=== PATIENT | female | born 1970 | race Caucasian/White ===

== ENCOUNTER 2016-09-25 20:19 | Emergency (ER) | payer SELFPAY ==
[~2016-09-25] VITALS: Ht 167.6 cm; Wt 59.0 kg
[2016-09-25 20:22] VITALS: BP 124/86
--- NOTE | 2016-09-25 23:33 | NUR ---
CALLED PT NAME [id number]. NO RESPONSE IN WAITING ROOM.
--- NOTE | 2016-09-25 23:34 | NUR ---
PER ADMITTING. PT IS NOT IN WAITING ROOM AND LEFT.
== END 2016-09-25 23:35 | disposition left against medical advice (07) ==
LOC: ER 20:22
DX: Z53.21 Procedure and treatment not carried out due to patient leaving prior to being seen by health care provider (principal)
CPT/HCPCS: A4606; Z7610

== ENCOUNTER 2017-06-22 14:12 | Emergency (ER) | payer SELFPAY ==
[~2017-06-22] VITALS: Ht 167.6 cm; Wt 53.1 kg
[2017-06-22 14:26] VITALS: BP 122/54
[2017-06-22] MEDS ORDERED: LIDOCAINE 1%-EPI 1:100,000 20 ML VIAL ONE (14:51)
[2017-06-22] MEDS ORDERED: IBUPROFEN 600 MG TABLET PO ONE ×2 (14:51→15:00)
[2017-06-22] MEDS ORDERED: LIDOCAINE 1%-EPI 1:100,000 20 ML VIAL TP ONE (15:00)
== END 2017-06-22 15:58 | disposition home or self-care (01) ==
LOC: ER 14:22
DX: L02.31 Cutaneous abscess of buttock (principal); Z88.5 Allergy status to narcotic agent; Z88.6 Allergy status to analgesic agent
CPT/HCPCS: 10060; 99283; A4606; A6402; J3490; Z7610